=== PATIENT | male | born 1945 | race Caucasian/White ===

== ENCOUNTER 2018-08-13 17:30 | Emergency (ER) | payer MEDICARE ==
[2018-08-13] MEDS ORDERED: Albuterol/Ipratropium NEB.SOL* Albuterol 2.5 MG/Ipratropium 0.5 MG 3 ML INH ONE (17:43)
--- NOTE | 2018-08-13 17:49 | UC ---
Respiratory Complaint HPI - HPI Summary HPI Summary: 73-year-old male comes in with chief complaint of 2 days of runny nose fevers body aches shortness of breath weakness and fatigue. Patient does have COPD. He has uses inhalers which helps briefly with his symptoms. No complaint of chest pain. No pedal edema. Patient's hard of hearing at baseline. Is very fatigued since being ill. He has also been mildly confused. - History of Current Complaint Chief Complaint: UCRespiratory Stated Complaint: DIFFICULTY BREATHING Time Seen by Provider: 08/13/18 17:31 Pain Intensity: 0 - Allergies/Home Medications Allergies/Adverse Reactions: Allergies Allergy/AdvReac Type Severity Reaction Status Date / Time No Known Allergies Allergy Verified 08/13/18 17:35 PMH/Surg Hx/FS Hx/Imm Hx Previously Healthy: Yes Respiratory History: COPD Other History Of: Negative For: HIV, Hepatitis B, Hepatitis C, Anticoagulant Therapy - Surgical History Surgical History: None - Family History Known Family History: Positive: Cardiac Disease Negative: Renal Disease, Blood Disorder - Social History Alcohol Use: Daily Alcohol Amount: 2-3 beers Substance Use Type: None Smoking Status (MU): Former Smoker Type: Cigarettes, eCigarettes Amount Used/How Often: 1/2 PPD Length of Time of Smoking/Using Tobacco: 61 Years Have You Smoked in the Last Year: Yes When Did the Patient Quit Smoking/Using Tobacco: states he stopped smoking in November & switched to e-cgis Household Exposure Type: Cigarettes - Immunization History Most Recent Influenza Vaccination: Not the 2014/2015 Season Most Recent Pneumonia Vaccination: Fall 2013 Review of Systems All Other Systems Reviewed And Are Negative: Yes Constitutional: Positive: Fever, Chills, Fatigue Skin: Positive: Negative Eyes: Positive: Negative ENT: Positive: Nasal Discharge, Sinus Congestion Respiratory: Positive: Shortness Of Breath Cardiovascular: Positive: Negative Gastrointestinal: Positive: Negative Motor: Positive: Negative Neurovascular: Positive: Negative Musculoskeletal: Positive: Myalgia Neurological: Positive: Other - see hpi Psychological: Positive: Negative Is Patient Immunocompromised?: No Physical Exam Triage Information Reviewed: Yes Appearance: No Pain Distress, Well-Nourished, Ill-Appearing - moderate Vital Signs: Initial Vital Signs Temp 99.8 F 08/13/18 17:33 Pulse 103 08/13/18 17:33 Resp 28 08/13/18 17:33 BP 142/62 08/13/18 17:33 Pulse Ox 100 08/13/18 17:33 Vital Signs Reviewed: Yes Eye Exam: Normal Eyes: Positive: Conjunctiva Clear ENT: Positive: Pharyngeal erythema, Nasal congestion, Nasal drainage, TMs normal Neck exam: Normal Neck: Positive: Supple Respiratory: Positive: Lungs clear, Other: - tachypnea Cardiovascular: Positive: Tachycardia Abdomen Description: Positive: Nontender, Soft Musculoskeletal Exam: Normal Musculoskeletal: Positive: ROM Intact, No Edema Neurological: Positive: Muscle Tone Normal, Other: - YUHAAVIATAM and mild confusion Psychological: Positive: Age Appropriate Behavior Skin Exam: Normal Respiratory Course/Dx - Course Course Of Treatment: Patient Name: RENA HARPER Medical Record#: [id number]. Ordering Physician: Esvni Hancock MD Acct.#: [id number]. : 1945 Age: 73 Sex: M Location: [facility]. Exam Date: 08/13/181742 ADM Status: PRE ER. Order Information: CHEST PA LAT 2 VWS. Accession Number: [id number]. CPT: 98173. INDICATION: Shortness of breath. COMPARISON: Correlation is made with prior studies from March 20, 2015 and September 182015. TECHNIQUE: Dual-energy PA and lateral views of the chest were obtained. FINDINGS: The heart is within normal limits in size. The lungs are markedly hyperinflated and clear. No pleural effusion is seen. IMPRESSION: FINDINGS CONSISTENT WITH COPD, NO EVIDENCE FOR ACUTE FINDING. . <Electronically signed by Lawrence Goldman MD in OV> 08/13/18 888. I discussed the x-ray with the patient and his family. There is no pneumonia. Patient has the flu. This started him on Tamiflu and symptomatic treatment. I sent a prescription with him take get an incentive spirometer. Here his respiratory rate was elevated at 28. His blood pressure was 142/62. Oxygen saturation 100%. Heart rate 103. Temperature 99.8. Discharge vital signs now show a temperature of 101.2, heart rate of 93, O2 sat of 96% on room air, blood pressure 110/53, respiratory rate of 30. Given the worsening of his vital signs I recommended going to the emergency department. They prefer to go by POV. I discussed this with physician respiratory equipment assistant Sera in the [place] emergency room. - Differential Dx/Diagnosis Provider Diagnosis: Influenza Discharge - Sign-Out/Discharge Documenting (check all that apply): Patient Departure All imaging exams completed and their final reports reviewed: Yes - Discharge Plan Condition: Stable Disposition: HOME-RECOMMEND TO ED Patient Education Materials: Influenza (ED) Referrals: Julián Husain MD [Primary Care Provider] - Additional Instructions: GO DIRECTLY TO THE EMERGENCY DEPARTMENT FOR FURTHER EVALUATION. - Billing Disposition and Condition Condition: STABLE Disposition: Home-Recommend to ED
[2018-08-13 17:54] LABS: Influenza A Molecular POSITIVE (Negative)
[2018-08-13 19:08] VITALS: BP 110/53
[2018-08-13] MEDS ORDERED: Acetaminophen TAB* 325 MG PO ONE (19:09)
== END 2018-08-13 19:21 | disposition home health service (06) ==
LOC: UCCORT 17:30
DX: J11.1 Influenza due to unidentified influenza virus with other respiratory manifestations (principal); J44.9 Chronic obstructive pulmonary disease, unspecified; Z79.899 Other long term (current) drug therapy; Z87.891 Personal history of nicotine dependence
CPT/HCPCS: 71046; 99213; A9270-GY; G0463